=== PATIENT | male | born 1940 | race Caucasian/White ===

== ENCOUNTER 2019-01-05 13:19 | Outpatient (CLI) ==
--- NOTE | 2019-01-05 14:53 | DI ---
Exam: Right foot three-view. HISTORY: Pain in foot. Findings: Three images of the right foot are submitted. These demonstrate no acute fracture or disl ocation. There is mild sclerosis and osteophytosis at the first metatarsophalangeal joint. There is no osseous erosion or radiodense foreign body. The small plantar calcaneal spurs noted. No focal s oft tissue swelling. Impressions: Mild degenerative findings of the first metatarsophalangeal joint. No acute fracture or dislocation. Small plantar calcaneal spur.
== END 2019-01-05 13:20 | disposition home or self-care (01) ==
LOC: RAD 13:19
PROVIDERS: ATTEND Physician Assistant
DX: M79.674 Pain in right toe(s) (principal)